=== PATIENT | male | born 1960 | race Two or more races ===

== ENCOUNTER 2016-12-15 08:09 | Day surgery (SDC) | payer OTHER ==
[2016-12-15] VITALS (7 sets, daily range): BP systolic 116–137; BP diastolic 74–97
[~2016-12-15] VITALS: Ht 172.7 cm; Wt 81.6 kg
[~2016-12-15 08:09] MED LIST: AZELASTINE137 MCG/0. NS; NEXIUM40 MG ORAL; PROAIR HFA8.5 GM INH; QVAR7.3 GM INH; SINGULAIR10 MG ORAL
--- NOTE | 2016-12-15 08:09 | Pre-Procedure Note/Attestation ---
Pre-Procedure Note/Attestation Complete Prior to Procedure Planned Procedure: right Procedure Narrative: cataract extraction with implant right eye Indications for Procedure Pre-Operative Diagnosis: cataract right eye Attestation I attest that I discussed the nature of the procedure; its benefits; risks and complications; and alternatives (and the risks and benefits of such alternatives ), prior to the procedure, with the patient (or the patient's legal exhibit display representative). I attest that, if there was a reasonable possibility of needing a blood transfusion, the patient (or the patient's legal exhibit display representative) was given the [facility] standardized written summary, pursuant to the [place] Blood Safety Act ([place] Health and Safety Code # 1645, as amended). I attest that I re-evaluated the patient just prior to the surgery and that there has been no change in the patient's H&P, except as documented below: CODY WASHINGTON Dec 15, 2016 08:09
[2016-12-15] MEDS: Tobradex Opth Susp 2.5ml RIGHT EYE SCH ×3 (08:50→09:20)
[2016-12-15] MEDS: Tropicamide 1% Opth Soln RIGHT EYE SCH ×3 (08:50→09:20)
[2016-12-15] MEDS: Phenylephrine 2.5% Op Soln RIGHT EYE SCH ×3 (08:51→09:20)
[2016-12-15] MEDS: Gatifloxacin Opth Solution 0.5% RIGHT EYE SCH ×3 (08:51→09:20)
[2016-12-15] MEDS: Akten 3.5% 1ml Btl RIGHT EYE SCH ×3 (08:52→09:20)
[2016-12-15] MEDS: Diclofenac Sod 0.1% Op Soln RIGHT EYE SCH ×3 (08:52→09:20)
[2016-12-15] MEDS ORDERED: ZYRTEC10 MG ORAL (09:14)
[2016-12-15] MEDS ORDERED: DIOVAN320 MG ORAL (09:15)
[2016-12-15] MEDS ORDERED: CYANOCOBAL1000 MCG/M IM (09:16)
[2016-12-15] MEDS ORDERED: VIT D3 PO (09:18)
[2016-12-15] MEDS ORDERED: LR 1000ml ONE (10:50)
--- NOTE | 2016-12-15 11:23 | Anethesia Preoperative Eval ---
Anesthesia Pre-op PMH/ROS General Date of Evaluation: Dec 15, 2016 Time of Evaluation: 11:22 Anesthesiologist: albert ASA Score: ASA 2 Mallampati Score Class I : Soft palate, uvula, fauces, pillars visible Class II: Soft palate, uvula, fauces visible Class III: Soft palate, base of uvula visible Class IV: Only hard plate visible Mallampati Classification: Class II Surgeon: tiana Diagnosis: cataract Surgical Procedure: cataract extraction Anesthesia History: none Family History: no anesthesia problems Allergies: Coded Allergies: WARFARIN (Verified Allergy, Mild, rash, 12/14/16) Medications: see eMAR Past Medical History Cardiovascular: Reports: HTN Pulmonary: Reports: asthma Gastrointestinal/Genitourinary: Denies: CRI, ESRD, GERD, other Neurologic/Psychiatric: Denies: CVA, TIA, dementia, depression/anxiety, other Endocrine: Denies: DM, hypothyroidism, other, steroids HEENT: Reports: cataract (R) Hematology/Immune: Denies: DVT, anemia, bleeding disorder, other Musculoskeletal/Integumentary: Denies: DDD, DJD, OA, RA, edema, other Anesthesia Pre-op Phys. Exam Physician Exam Last Vital Signs Date Time Temp Pulse Resp B/P Pulse Ox O2 Delivery O2 Flow Rate FiO2 12/15/16 08:55 97.7 69 18 116/74 96 Room Air Constitutional: NAD Neurologic: CN 2-12 intact Cardiovascular: RRR Respiratory: CTA Gastrointestinal: S/NT/ND Airway Exam Mallampati Classification 2 Mallampati Score: Class II MO: full ROM: full Dentures: no lower, no upper Anesthesia Pre-op A/P Studies Pre-op Studies: EKG - sr Risk Assessment & Plan Assessment: pt declined sedation/dr. montiel and team asks for anesthesia to standby Plan: mac - however will stand by Status Change Before Surgery: No Pre-Antibiotics Drug: none VAHID LAZARO [employer] SALESPERSON Dec 15, 2016 11:23
--- NOTE | 2016-12-15 11:32 | Brief Operative Note ---
Immediate Post Operative Note Operative Note Pre-op Diagnosis: cataract right eye Procedure: phacoemulsification of cataract with implant right eye Post-op Diagnosis: same as pre-op Surgeon: cody montiel Fell Cutter: none Anesthesiologist: dori jolley crna Anesthesia: MAC Specimen: none Complications: none Condition: stable Estimated Blood Loss: none Drains: none Implant(s) used?: Yes CODY MONTIEL Dec 15, 2016 11:32
--- NOTE | 2016-12-15 11:35 | Immediate Post-Op Evaluation ---
Immediate Post-Op Evalulation Immediate Post-Op Evalulation Procedure: cataract extraction Date of Evaluation: Dec 15, 2016 Time of Evaluation: 11:34 IV Fluids: 200 Blood Pressure Systolic: 134 Blood Pressure Diastolic: 80 Pulse Rate: 80 Respiratory Rate: 14 O2 Sat by Pulse Oximetry: 98 Nausea: No Vomiting: No Complications none Patient Status: awake, reacts, patent Hydration Status: adequate Drug: none SMITARIVAHID QUEZADA CRNA Dec 15, 2016 11:35
--- NOTE | 2016-12-15 11:36 | 48 Hour Post Anesthesia Eval ---
Post Anesthesia Evaluation Procedure: cataract extraction Date of Evaluation: Dec 15, 2016 Time of Evaluation: 11:36 Blood Pressure Systolic: 130 0: 80 Pulse Rate: 74 Airway: patent Nausea: No Vomiting: No Hydration Status: adequate Mental Status/LOC: patient returned to baseline Follow-up Care/Observations: no sedation Post-Anesthesia Complications: none Follow-up care needed: N/A VAHID LAZARO CRNA Dec 15, 2016 11:36
[2016-12-15] MEDS ORDERED: BSS 500ml btl ONE (13:03)
[2016-12-15] MEDS ORDERED: Dexamethasone 4mg/ml vial ONE (13:04)
[2016-12-15] MEDS ORDERED: BSS 15ml BTL ONE (13:04)
[2016-12-15] MEDS ORDERED: Lidocaine 1% MPF 10mg/ml 5ml ONE (13:04)
[2016-12-15] MEDS ORDERED: Povidone-Iodine 5% opth solution ONE (13:04)
[2016-12-15] MEDS ORDERED: EPINEPHrine 1mg/1ml Amp ONE (13:04)
[2016-12-15] MEDS ORDERED: Sodium Hyaluronate 14 mg/ml 0.85ml ONE (13:04)
--- NOTE | 2016-12-15 21:40 | Operative Note - Dictated ---
DATE OF OPERATION: 12/15/2016 PREOPERATIVE DIAGNOSIS: Cataract, right eye. POSTOPERATIVE DIAGNOSIS: Cataract, right eye. PROCEDURE: Phacoemulsification cataract right eye with placement of posterior intraocular lens. SURGEON: Ramiro Medrano M.D. ([facility] [place]) RENTAL CAR FERRY DRIVER: None. ANESTHESIA: MAC/topical. ANESTHESIOLOGIST: Lala Bingham CRNA. INDICATION FOR PROCEDURE: Poor vision right eye. DESCRIPTION OF FINDINGS: Steroid-induced posterior subcapsular cataract, right eye. DESCRIPTION OF PROCEDURE: The patient received a topical anesthetic block consisting of 3.5% Akten eye drops. The eye was then prepped and draped in usual manner. A lid speculum was placed. An operating Zeiss microscope was positioned. The temporal corneal groove was made with a denys blade. A SuperSharp blade made a stab incision at 12 o'clock position. A 0.1 mL of 1% nonpreserved intracameral lidocaine was injected. Healon was instilled into the anterior chamber. A 2.5/2.8 mm trapezoidal denys blade was used to complete the temporal corneal wound. A cystotome was used to create an anterior capsular flap. Utrata forceps used to complete the capsulorrhexis. BSS on a cannula was used to hydrodissect the nucleus. The lens nucleus phacoemulsified in a phaco-fracture technique. Remaining cortical material was removed with the I/A and the posterior capsule polished with the I/A on Cap vac. Healon was reinstilled into the capsular bag and anterior chamber, and an Ramirez foldable one-piece posterior chamber intraocular lens model [id number], power 21.5 diopter, serial number #[id number] was placed in the injector. The lens was put in the capsular bag. The I/A tip was used to remove the Healon and position the lens. The wound edge was hydrated with BSS and a blunt-tipped cannula. The wound was checked and found to be watertight. The lid speculum was removed and a drop of TobraDex and Zymaxid was placed. A clear plastic shield was taped over the eye. The patient tolerated the procedure well and left the operating room in good condition. Ramiro Medrano M.D. (CSM) DR: CATIE JOB#: [id number] CC:
== END 2016-12-15 12:20 | disposition home or self-care (01) ==
LOC: SUR 08:09
DX: H26.31 Drug-induced cataract, right eye (principal); H25.041 Posterior subcapsular polar age-related cataract, right eye; T38.0X5A Adverse effect of glucocorticoids and synthetic analogues, initial encounter; Y92.89 Other specified places as the place of occurrence of the external cause; H35.711 Central serous chorioretinopathy, right eye; J45.909 Unspecified asthma, uncomplicated; N40.0 Benign prostatic hyperplasia without lower urinary tract symptoms; E78.00 Pure hypercholesterolemia, unspecified; I10 Essential (primary) hypertension; K21.9 Gastro-esophageal reflux disease without esophagitis; M19.049 Primary osteoarthritis, unspecified hand; M19.079 Primary osteoarthritis, unspecified ankle and foot; Z86.718 Personal history of other venous thrombosis and embolism; Z88.8 Allergy status to other drugs, medicaments and biological substances
CPT/HCPCS: 66984; J0171; J1100; J7120; V2632; 94003; 94150